=== PATIENT | female | born 1975 | race Caucasian/White ===

== ENCOUNTER 2019-03-26 11:17 | Inpatient (IN) | payer MEDICAID ==
[~2019-03-26] VITALS: Ht 165.1 cm; Wt 75.7 kg
[2019-03-26 11:24] VITALS: BP 130/81
--- NOTE | 2019-03-26 11:37 | NUR ---
PATIENT PRESENTS TO ED WITH C/O SOB X DAYS. PT PT REPORTS FEELING FATIGUE AND NAUSEATED. DENIES V/D; SKIN IS PINK/WARM/DRY; AAOX4 WITH EVEN AND STEADY GAIT; LUNGS CLEAR BL; HR EVEN AND REGULAR; PT DENIES ANY FEVER, CP, OR COUGH AT THIS TIME; PATIENT STATES PAIN OF 0/10 AT THIS TIME; VSS; PATIENT POSITIONED FOR COMFORT; HOB ELEVATED; BEDRAILS UP X2; BED DOWN. ER MD AT BEDSIDE. PT REPORTS NKA AND NO MEDICATIONS. HX: ASTHMA, ANEMIA
--- NOTE | 2019-03-26 11:59 | NUR ---
PT TO X-RAY VIA WHEELCHAIR AT THIS TIME
[2019-03-26 12:21] LABS: BASOPHILS # (AUTO) 0.1 K/uL (0.00-0.22); BASOPHILS % (AUTO) 0.9 % (0.0-2.0); EOSINOPHILS # (AUTO) 0.2 K/uL (0-0.4); EOSINOPHILS % (AUTO) 3.1 % (0.0-4.0); HEMATOCRIT 24.9 % (36-48); HEMOGLOBIN 7.4 g/dL (12.0-16.0); LYMPHOCYTES # (AUTO) 1.7 K/uL (2.5-16.5); LYMPHOCYTES % (AUTO) 27.5 % (20.5-51.1); MEAN CORPUSCULAR HEMOGLOBIN 19 pg (27-31); MEAN CORPUSCULAR HGB CONC 30 g/dL (33-37); MEAN CORPUSCULAR VOLUME 62.3 fL (80-94); MONOCYTES # (AUTO) 0.5 K/uL (0.8-1.0); MONOCYTES % (AUTO) 7.6 % (1.7-9.3); NEUTROPHILS # (AUTO) 3.9 K/uL (1.8-7.7); NEUTROPHILS % (AUTO) 60.9 % (42.2-75.2); PLATELET COUNT (AUTO) 378 K/uL (140-450); RED BLOOD CELL COUNT(AUTO) 3.99 MIL/uL (4.20-5.40); RED CELL DISTRIBUTION WIDTH 19.5 % (11.6-13.7); WHITE BLOOD COUNT (AUTO) 6.3 K/uL (4.8-10.8)
[2019-03-26 12:35] LABS: ANION GAP 14.3 (8-16); CARBON DIOXIDE 25.4 mmol/L (21-32); CREATININE 0.5 mg/dL (0.6-1.3); POTASSIUM 3.7 mmol/L (3.5-5.1); PROTHROMBIN TIME 9.9 secs (10.8-13.4)
[2019-03-26 12:42] LABS: TOTAL BILIRUBIN 0.4 mg/dL (0.0-1.0)
--- NOTE | 2019-03-26 12:50 | NUR ---
PT RESTING IN BED. FAMILY AT BEDSIDE. PT STATES PAIN 0/10, BUT IS EXPERIENCING SOB PERIODICALLY.
[2019-03-26] MEDS ORDERED: LORazepam 2 MG/ML VIAL IM/IVP PRN (14:10)
[2019-03-26] MEDS ORDERED: ACETAMINOPHEN 325 MG TAB PO PRN (14:10)
[2019-03-26] MEDS ORDERED: ONDANSETRON 4 MG/2 ML VIAL IM/IVP PRN (14:10)
[2019-03-26] MEDS ORDERED: HYDROcodone/APAP 5/325 MG 1 TAB TAB PO PRN (14:10)
[2019-03-26] MEDS ORDERED: DOCUSATE SODIUM 100 MG GELCAP PO PRN (14:10)
[2019-03-26] MEDS ORDERED: MORPHINE SULFATE 2 MG/ML SYR IVP PRN (14:10)
[2019-03-26] MEDS: NACL 0.9% 1,000 ML IV SCH (14:26)
--- NOTE | 2019-03-26 14:34 | NUR ---
DR MULTANI AT BEDSIDE.
[2019-03-26 14:52] LABS: APPEARANCE,URINE CLEAR (CLEAR); COLOR,URINE STRAW (YELLOW)
--- NOTE | 2019-03-26 14:52 | NUR ---
PT RECIEVED LUNCH.
[2019-03-26 14:53] LABS: BILIRUBIN,URINE NEGATIVE (NEGATIVE); BLOOD, URINE NEGATIVE (NEGATIVE); LEUKOCYTE ESTERASE ,URINE NEGATIVE (NEGATIVE); NITRITE, URINE NEGATIVE (NEGATIVE); PH,URINE 5.5 (5.0-9.0); UGLUCOSE NEGATIVE (NEGATIVE)
[2019-03-26] MEDS ORDERED: FERR325E14 PO (15:02)
[2019-03-26 15:08] LABS: BARBITURATE, URINE NEG. ng/ml (NEG <=200); BENZODIAZEPINE, URINE NEG. ng/mL (NEG <=200); CANNABINOID, URINE NEG. ng/mL (NEG <=50); COCAINE, URINE NEG. ng/mL (NEG <=300); OPIATE, URINE NEG. ng/mL (NEG <=2000); PHENCYCLIDINE SCREEN,URINE NEG. ng/mL (NEG <=25)
[2019-03-26 15:21] LABS: LIPASE 73 U/L (73-393); MAGNESIUM 1.9 mg/dL (1.8-2.4); PHOSPHORUS 3.1 mg/dL (2.5-4.9)
[2019-03-26] MEDS: NICOTINE TRANSD SYS 14 MG/24 HR PATCH TD SCH (16:00)
--- NOTE | 2019-03-26 16:30 | NUR ---
Pt report given to Yahaira QUIROZ at bedside room 122B in [facility] – [place], [place]. Transfer of care at this time.
--- NOTE | 2019-03-26 16:35 | NUR ---
RECEIVED REPORT FROM ER NURSE REYNOLD. TRANSFERRED TO UNIT VIA WHEELCHAIR, AMBULATES WITH STEADY GAIT. PT AAOX4, NO C/O PAIN AT THIS TIME. IV ON RT AC 20 GA ON SALINE LOCK, FLUSHING WITH NO RESISTANCE. RESPIRATIONS EVEN AND UNLABORED ON RA. ABD SOFT, ACTIVE BS. SKIN IS INTACT, WARM TO TOUCH. REVIEWED POC WITH PT, PT VERBALIZED UNDERSTANDING.
--- NOTE | 2019-03-26 17:35 | NUR ---
PT IS CONVERSATIONAL, ABLE TO ANSWER ADMISSION QUESTIONS. PT HAS NO SIGNS OF DISTRESS AT THIS TIME.
[2019-03-26 18:23] LABS: BASOPHILS % (AUTO) 0.5 % (0.0-2.0); EOSINOPHILS # (AUTO) 0.1 K/uL (0-0.4); EOSINOPHILS % (AUTO) 1.5 % (0.0-4.0); HEMATOCRIT 23.2 % (36-48); LYMPHOCYTES # (AUTO) 2.1 K/uL (2.5-16.5); LYMPHOCYTES % (AUTO) 29.2 % (20.5-51.1); MEAN CORPUSCULAR HEMOGLOBIN 19 pg (27-31); MEAN CORPUSCULAR HGB CONC 30 g/dL (33-37); MEAN CORPUSCULAR VOLUME 62.7 fL (80-94); MONOCYTES # (AUTO) 0.5 K/uL (0.8-1.0); MONOCYTES % (AUTO) 7.5 % (1.7-9.3); NEUTROPHILS # (AUTO) 4.5 K/uL (1.8-7.7); NEUTROPHILS % (AUTO) 61.3 % (42.2-75.2); PLATELET COUNT (AUTO) 368 K/uL (140-450); RED CELL DISTRIBUTION WIDTH 19.5 % (11.6-13.7); WHITE BLOOD COUNT (AUTO) 7.3 K/uL (4.8-10.8)
[2019-03-26 18:26] LABS: HEMOGLOBIN 6.8 g/dL (12.0-16.0)
--- NOTE | 2019-03-26 19:10 | NUR ---
PT SIGNED BLOOD TRANSFUSION CONSENT. ENDORSED PT TO TRAILER RENTAL CLERK NURSE. PT HAS NO SIGNS OF DISTRESS AT THIS TIME.
--- NOTE | 2019-03-26 19:20 | NUR ---
RECEIVED PT I STABLE CONDITION FROM AM NURSE. AWAKE, ALERT AND ORIENTED X4. ON MED SURG. WITH NO C/O ANY DISCOMFORT NOR PAIN NOTED. FAMILY AT BEDSIDE. HAS IVF INFUASING ON THE RT AC G#20 . CLEAR AND PATENT. PLAN OF CARE DISCUSSED AND VERBALIZED UNDERSTANDING. MADE AWARE ALSO OF THE NEED FOR BLOOD TRANSFUSION. BED ON LOW POSITION,FREQ ROUNDS NEEDED. CALL LIGHT WITHIN EASY REACH WILL CONTINUE TO MONITOR.
--- NOTE | 2019-03-26 20:05 | NUR ---
FERRLICIT IV INFUSING AT THIS TIME. WILL MONITOR FOR ANY REACTION.
[2019-03-26] MEDS ORDERED: SODIUM FERRIC GLUCONATE 125 MG in NACL 0.9% 100 ML IV SCH (21:00)
--- NOTE | 2019-03-26 21:03 | NUR ---
CALL DR. CARO FOR ORDER OF CROSS MATCH OF I UNIT PRBC.
[2019-03-26] MEDS: FERROUS SULFATE 325 MG TABEC PO SCH (21:49)
--- NOTE | 2019-03-26 22:30 | NUR ---
PT STILL AWAKE. TALKING TO THE CELL PHONE WITH FAMILY. NO C/O ANY DISCOMFORT NOR PAIN NOTED.
[2019-03-27 00:37] VITALS: BP 101/62
--- NOTE | 2019-03-27 01:40 | NUR ---
PT C/O H/A. PROVIDE WITH SOME CRACKERS AND JUICE . THEN TYLENOL 650 MG PO GIVEN ORDERED.
--- NOTE | 2019-03-27 02:25 | NUR ---
PRE BLOOD TRANSFUSION VITAL SIGNS TAKEN. WILL GET THE I UNIT PRBC IN BLOOD BANK.
--- NOTE | 2019-03-27 02:40 | NUR ---
I UNIT PRBC STARTED AFTER BEEN VERIFIED WITH ANOTHER RN, DARIUSZ AND WITH THE PT. PT MADE AWARE OF THE POSSIBLE REACTION ON BLOOD TRANSFUSION PRIOR TO STARTING THE BLOOD. VERBALIZED UNDERSTANDING. WILL CONTINUE TO MONITOR.
--- NOTE | 2019-03-27 03:10 | NUR ---
BLOOD TRANSFUSION STILL INFUSING. NO REACTION NOTED AT THIS TIME.
--- NOTE | 2019-03-27 05:25 | NUR ---
BLOOD TRANSFUSION DONE. NO REACTION NOTED.
--- NOTE | 2019-03-27 06:30 | NUR ---
PT AWAKE. WATCHING TV AND SHE SAID SHE FEELS BETTER, NO SOB AND CHEST DISCOMFORT NOTED.
--- NOTE | 2019-03-27 07:22 | NUR ---
ENDORSED PT IN STABLE CONDITION TO AM NURSE FOR CONTINUITY OF CARE.
--- NOTE | 2019-03-27 07:23 | NUR ---
RECEIVED REPORT FROM STEAM ROLLER OPERATOR NURSE LUIS ALFREDO FOR CONTINUITY OF CARE. PT IN STABLE CONDITION. RESPIRATIONS EVEN AND UNLABORED, ROOM AIR. IV INTACT AND PATENT. SAFETY MEASURES IN PLACE. BED IN LOW POSITION. CALL LIGHT AT BEDSIDE. WILL CONTINUE TO MONITOR.
[2019-03-27 07:32] LABS: BASOPHILS % (AUTO) 0.7 % (0.0-2.0); EOSINOPHILS # (AUTO) 0.2 K/uL (0-0.4); EOSINOPHILS % (AUTO) 2.7 % (0.0-4.0); HEMATOCRIT 24.8 % (36-48); HEMOGLOBIN 7.5 g/dL (12.0-16.0); LYMPHOCYTES # (AUTO) 2.3 K/uL (2.5-16.5); LYMPHOCYTES % (AUTO) 30.8 % (20.5-51.1); MEAN CORPUSCULAR HEMOGLOBIN 20 pg (27-31); MEAN CORPUSCULAR HGB CONC 30 g/dL (33-37); MEAN CORPUSCULAR VOLUME 64.4 fL (80-94); MONOCYTES # (AUTO) 0.8 K/uL (0.8-1.0); MONOCYTES % (AUTO) 10.5 % (1.7-9.3); NEUTROPHILS # (AUTO) 4.2 K/uL (1.8-7.7); NEUTROPHILS % (AUTO) 55.3 % (42.2-75.2); PLATELET COUNT (AUTO) 329 K/uL (140-450); RED BLOOD CELL COUNT(AUTO) 3.85 MIL/uL (4.20-5.40); RED CELL DISTRIBUTION WIDTH 20.4 % (11.6-13.7); WHITE BLOOD COUNT (AUTO) 7.5 K/uL (4.8-10.8)
[2019-03-27 08:00] VITALS: BP 96/48
[2019-03-27 08:20] LABS: MAGNESIUM 2.1 mg/dL (1.8-2.4); PHOSPHORUS 3.3 mg/dL (2.5-4.9)
[2019-03-27 08:25] LABS: ANION GAP 11.6 (8-16); CARBON DIOXIDE 25.5 mmol/L (21-32); CREATININE 0.5 mg/dL (0.6-1.3); POTASSIUM 4.1 mmol/L (3.5-5.1)
--- NOTE | 2019-03-27 08:48 | NUR ---
PATIENT HAS BEEN SCREENED AND CATEGORIZED MODERATE NUTRITION RISK. PATIENT WILL BE SEEN WITHIN 3-5 DAYS OF ADMISSION. 03/30/19-04/01/[address]
[2019-03-27] MEDS: FERROUS SULFATE 325 MG TABEC PO SCH ×2 (09:01→20:43)
[2019-03-27] MEDS: NACL 0.9% 1,000 ML IV SCH (09:03)
--- NOTE | 2019-03-27 09:05 | NUR ---
GAVE ORDERED DUE MEDICATION. PT TOLERATED WELL.
[2019-03-27 10:42] LABS: CHOL/HDL RATIO 3.4 (1-4.5)
--- NOTE | 2019-03-27 12:33 | NUR ---
PT LYING IN BED WATCHING TV AT THIS TIME. BED IN LOW POSITION. CALL LIGHT AT BEDSIDE. WILL CONTINUE TO MONITOR.
--- NOTE | 2019-03-27 15:47 | NUR ---
PT TALKING TO FAMILY AT BEDSIDE IN STABLE CONDITION. BED IN LOW POSITION. CALL LIGHT AT BEDSIDE. WILL CONTINUE TO MONITOR.
[2019-03-27 16:00] VITALS: BP 110/47
[2019-03-27] MEDS: NICOTINE TRANSD SYS 14 MG/24 HR PATCH TD SCH (16:00)
--- NOTE | 2019-03-27 16:25 | NUR ---
PT REFUSED NICOTINE PATCH AT THIS TIME. PT WALKING AROUND UNIT IN STABLE CONDITION. WILL CONTINUE TO MONITOR.
--- NOTE | 2019-03-27 18:01 | NUR ---
PT FAMILY BROUGHT FOOD AND EATING WITH FAMILY AT BEDSIDE. PT TOLERATING WELL. BED IN LOW POSITION. CALL LIGHT AT BEDSIDE. WILL CONTINUE TO MONITOR.
--- NOTE | 2019-03-27 19:25 | NUR ---
RECEIVED BEDSIDE REPORT FROM AM SHIFT RN NIKKIE, FOR PT'S CONTINUITY OF CARE. PT IS AAOX4, FAMILY MEMBERS AT BEDSIDE, IS ON ROOM AIR, HAS RIGHT AC 20G INFUSING WITH NS AT 60ML/HR, DENIES ANY PAIN OR DISCOMFORT AT THIS TIME. BED IS ON LOW POSITION, SIDE RAILS ARE UP, AND CALL LIGHT IS WITHIN REACH. EXPLAINED TO PT THE INTERVENTIONAL RADIOLOGIST ROUTINE, PT VERBALIZED UNDERSTANDING. WILL MONITOR PT THROUGHOUT SHIFT.
--- NOTE | 2019-03-27 19:30 | NUR ---
GAVE REPORT TO MOLDER OFFBEARER NURSE ARMAND FOR CONTINUITY OF CARE. PT IN STABLE CONDITION.
--- NOTE | 2019-03-27 20:43 | NUR ---
ADMINISTERED SCHEDULED PO MEDICATION ORDERED. PT TOLERATED IT WELL. DENIES ANY PAIN OR WEAKNESS AT THIS TIME. WILL CONTINUE TO MONITOR PT.
[2019-03-28] VITALS: BP 101/70
--- NOTE | 2019-03-28 | NUR ---
VS CHECKED AND CHARTED. PT DENIES ANY DISCOMFORT AT THIS TIME. PT REQUESTED FOR A CUP OF COFFEE. WILL CONTINUE TO MONITOR PT.
--- NOTE | 2019-03-28 01:15 | NUR ---
PT REQUESTED FOR CUP OF COFFEE. PT DENIES PAIN OR ANY DISCOMFORT AT THIS TIME. WILL CONTINUE TO MONITOR PT.
--- NOTE | 2019-03-28 03:38 | NUR ---
PT LYING DOWN ASLEEP WITH NO SIGNS OF DISTRESS. WILL CONTINUE TO MONITOR PT.
--- NOTE | 2019-03-28 06:35 | NUR ---
PT LYING DOWN ASLEEP WITH NO SIGNS OF DISTRESS. WILL ENDORSE TO AM SHIFT RN FOR PT'S CONTINUITY OF CARE.
[2019-03-28] MEDS: NACL 0.9% 1,000 ML IV SCH (06:48)
--- NOTE | 2019-03-28 07:15 | NUR ---
RECEIVED REPORT FROM SOCCER REFEREE NURSE DARIUSZ FOR CONTINUITY OF CARE. PT IN STABLE CONDITION. RESPIRATIONS EVEN AND UNLABORED, 02 2L VIA NC. IV INTACT AND PATENT. SAFETY MEASURES IN PLACE. BED IN LOW POSITION. BED ALARM ON. CALL LIGHT AT BEDSIDE. WILL CONTINUE TO MONITOR. Addendum: 03/28/19 at 0808 by Lyudmila Rowley RN WRONG PATIENT ABOVE NOTE.
--- NOTE | 2019-03-28 07:16 | NUR ---
RECEIVED REPORT FROM COMPUTING ARCHITECT NURSE DARIUSZ FOR CONTINUITY OF CARE. PT IN STABLE CONDITION. RESPIRATIONS EVEN AND UNLABORED, ROOM AIR. IV INTACT AND PATENT. SAFETY MEASURES IN PLACE. BED IN LOW POSITION. CALL LIGHT AT BEDSIDE. WILL CONTINUE TO MONITOR.
[2019-03-28 08:00] VITALS: BP 108/47
[2019-03-28 09:22] LABS: ANION GAP 13.3 (8-16); CARBON DIOXIDE 24.3 mmol/L (21-32); CREATININE 0.4 mg/dL (0.6-1.3); POTASSIUM 3.6 mmol/L (3.5-5.1)
[2019-03-28 09:31] LABS: BASOPHILS % (AUTO) 0.4 % (0.0-2.0); EOSINOPHILS # (AUTO) 0.2 K/uL (0-0.4); EOSINOPHILS % (AUTO) 3.5 % (0.0-4.0); HEMATOCRIT 24.3 % (36-48); HEMOGLOBIN 7.3 g/dL (12.0-16.0); LYMPHOCYTES # (AUTO) 2.1 K/uL (2.5-16.5); LYMPHOCYTES % (AUTO) 34.6 % (20.5-51.1); MEAN CORPUSCULAR HEMOGLOBIN 19 pg (27-31); MEAN CORPUSCULAR HGB CONC 30 g/dL (33-37); MEAN CORPUSCULAR VOLUME 64.6 fL (80-94); MONOCYTES # (AUTO) 0.6 K/uL (0.8-1.0); MONOCYTES % (AUTO) 9.3 % (1.7-9.3); NEUTROPHILS # (AUTO) 3.2 K/uL (1.8-7.7); NEUTROPHILS % (AUTO) 52.2 % (42.2-75.2); PLATELET COUNT (AUTO) 307 K/uL (140-450); RED BLOOD CELL COUNT(AUTO) 3.77 MIL/uL (4.20-5.40); RED CELL DISTRIBUTION WIDTH 20.4 % (11.6-13.7); WHITE BLOOD COUNT (AUTO) 6.1 K/uL (4.8-10.8)
--- NOTE | 2019-03-28 09:45 | NUR ---
PT DRESSING IN OWN CLOTHING IN PREPARATION OF UPCOMING DISCHARGE.
[2019-03-28] MEDS ORDERED: FERR324T11 PO (09:59)
[2019-03-28] MEDS: FERROUS SULFATE 325 MG TABEC PO SCH (10:05)
--- NOTE | 2019-03-28 10:07 | NUR ---
PT TALKING WITH FAMILY AT BEDSIDE. PT IN STABLE CONDITION. WILL CONTINUE TO MONITOR.
[2019-03-28 10:21] LABS: PHOSPHORUS 3.9 mg/dL (2.5-4.9)
--- NOTE | 2019-03-28 10:40 | NUR ---
GAVE DISCHARGE INSTRUCTIONS AND INFORMED WHERE TO ON SITE SOIL EVALUATOR PRESCRIPTIONS FROM HOME PHARMACY, PT VERBALIZED UNDERSTANDING. REMOVED IV, LUMEN INTACT. REMOVED ID BAND. PT REFUSED WHEELCHAIR. ESCORTED TO LOBBY WHERE FAMILY IS WAITING WITH VEHICLE. PT IN STABLE CONDITION.
== END 2019-03-28 10:40 | disposition home or self-care (01) | DRG 663 ==
LOC: MED 11:17 → MTU 14:08
PROVIDERS: ADMIT General Practice; ATTEND General Practice
PROC: 30233N1 Transfusion of Nonautologous Red Blood Cells into Peripheral Vein, Percutaneous Approach (ICD-10-PCS; principal; 2019-03-27)
DX: D50.9 Iron deficiency anemia, unspecified (principal); F32.9 Major depressive disorder, single episode, unspecified; F41.9 Anxiety disorder, unspecified; Z85.43 Personal history of malignant neoplasm of ovary; Z87.891 Personal history of nicotine dependence
CPT/HCPCS: 36415; 71046; 80048; 80053; 80305; 81003; 81025; 82140; 82607; 82728; 82746; 83036; 83540; 83690; 83735; 83880; 84100; 84443; 84484; 85025; 85045; 85610; 85730; 86886; 86900; 86901; 86920; 87081; 93005; 93308; 93970; 99285; G0482; J2916; J7030; P9016; Q0092

== ENCOUNTER 2019-03-30 21:03 | Emergency (ER) | payer MEDICAID ==
[~2019-03-30] VITALS: Ht 165.1 cm; Wt 74.4 kg
[~2019-03-30 21:03] MED LIST: FERR324T11 PO; FERR325E14 PO
[2019-03-30 21:09] VITALS: BP 105/64
--- NOTE | 2019-03-30 21:17 | NUR ---
PT AMBULATES TO LOBBY WITH STEADY GAIT. VSS AT THIS TIME. WILL CONTINUE TO MONITOR. AWAITING AVAILABLE BED.
--- NOTE | 2019-03-30 22:15 | NUR ---
PATIENT LEFT WITHOUT BEING SEEN BY DR. MYLES. CALLED AT 2129, 2144, AND 2214. NO FURTHER CARE PROVIDED FOR PATIENT.
== END 2019-03-30 21:40 | disposition left against medical advice (07) ==
LOC: MED 21:03
DX: R06.00 Dyspnea, unspecified (principal); Z53.21 Procedure and treatment not carried out due to patient leaving prior to being seen by health care provider

== ENCOUNTER 2019-07-14 22:12 | Emergency (ER) | payer SELFPAY ==
[~2019-07-14] VITALS: Ht 165.1 cm; Wt 75.7 kg
[~2019-07-14 22:12] MED LIST changes: -FERR325E14 PO
[2019-07-14 22:15] VITALS: BP 120/90
--- NOTE | 2019-07-14 22:33 | NUR ---
Louie stone in [facility] - 07/14/19 at 2234 by MARCIO PT AMBULATED TO [facility]
--- NOTE | 2019-07-14 22:34 | NUR ---
FLU SWAB COLLECTED
--- NOTE | 2019-07-14 22:34 | NUR ---
PT AMBULATED TO [facility]
[2019-07-14] MEDS ORDERED: KETOROLAC 30 MG/ML VIAL IM ONE (22:55)
--- NOTE | 2019-07-14 23:00 | NUR ---
PT ASSESMENT COMPLETE. PT SEATED UPRIGHT IN CHAIR. WILL CONTINUE TO MONITOR.
[2019-07-15 00:15] VITALS: BP 120/90
--- NOTE | 2019-07-15 00:15 | NUR ---
Patient discharged with v/s stable. Written and verbal after care instructions given and explained. Patient alert, oriented and verbalized understanding of instructions. Ambulatory with steady gait. All questions addressed prior to discharge. ID band removed. Patient advised to follow up with PMD. Rx of TAMIFLU, GUAIATUSSIN AND NAPROSYN WERE GIVEN given. Patient educated on indication of medication including possible reaction and side effects. Opportunity to ask questions provided and answered.
== END 2019-07-15 00:15 | disposition home or self-care (01) ==
LOC: MED 22:12
DX: J11.1 Influenza due to unidentified influenza virus with other respiratory manifestations (principal); R19.7 Diarrhea, unspecified; Z85.9 Personal history of malignant neoplasm, unspecified; Z79.899 Other long term (current) drug therapy
CPT/HCPCS: 71045; 81002; 81025; 87804; 96372; 99284; J1885

== ENCOUNTER 2019-08-31 23:44 | Emergency (ER) | payer SELFPAY ==
[~2019-08-31] VITALS: Ht 165.1 cm; Wt 81.6 kg
[2019-09-01 00:01] VITALS: BP 111/74
[2019-09-01] MEDS ORDERED: ALBUTEROL 0.083% 2.5 MG/3 ML NEBU INH ONE (00:10)
[2019-09-01] MEDS ORDERED: IPRATROPIUM 0.02% 0.5 MG/2.5 ML NEBU INH ONE (00:10)
[2019-09-01 00:27] VITALS: BP 111/74
== END 2019-09-01 00:28 | disposition home or self-care (01) ==
LOC: MED 23:44
DX: J06.9 Acute upper respiratory infection, unspecified (principal); Z79.899 Other long term (current) drug therapy; Z85.43 Personal history of malignant neoplasm of ovary
CPT/HCPCS: 93005; 99281; 99283; J7613; J7644

== ENCOUNTER 2019-10-09 22:43 | Emergency (ER) | payer SELFPAY ==
[~2019-10-09] VITALS: Ht 165.1 cm; Wt 81.6 kg
[2019-10-09 22:47] VITALS: BP 104/67
[2019-10-09 23:31] LABS: APPEARANCE,URINE CLEAR (CLEAR); BILIRUBIN,URINE NEGATIVE (NEGATIVE); BLOOD, URINE NEGATIVE (NEGATIVE); COLOR,URINE YELLOW (YELLOW); LEUKOCYTE ESTERASE ,URINE TRACE (NEGATIVE); NITRITE, URINE NEGATIVE (NEGATIVE); PH,URINE 5.5 (5.0-9.0); UGLUCOSE NEGATIVE (NEGATIVE)
[2019-10-09 23:44] LABS: RBC,URINE 0-5 /HPF (0-5)
[2019-10-09 23:55] VITALS: BP 104/67
== END 2019-10-09 23:56 | disposition home or self-care (01) ==
LOC: MED 22:43
DX: N39.0 Urinary tract infection, site not specified (principal); Z79.84 Long term (current) use of oral hypoglycemic drugs; Z90.49 Acquired absence of other specified parts of digestive tract
CPT/HCPCS: 81001; 81025; 87086; 99283